=== PATIENT | female | born 1965 | race Caucasian/White ===

== ENCOUNTER 2021-01-07 17:24 | Emergency (ER) | payer SELFPAY ==
[2015-07-01 05:47] VITALS: BP 116/73
[~2021-01-07 17:24] MED LIST: OXYC1TAB15 PO; PANT40TA77 PO
== END 2021-01-07 18:20 | disposition left against medical advice (07) ==
LOC: ER 17:24
DX: S99.912A Unspecified injury of left ankle, initial encounter (principal); Z53.21 Procedure and treatment not carried out due to patient leaving prior to being seen by health care provider; X58.XXXA Exposure to other specified factors, initial encounter; Y93.89 Activity, other specified; Y92.89 Other specified places as the place of occurrence of the external cause; Y99.8 Other external cause status